=== PATIENT | female | born 1950 | race Caucasian/White ===

== ENCOUNTER → 2016-08-26 | Outpatient (CLI) | payer MEDICAID ==
[2012-10-01 19:29] VITALS: BP 146/94
[2016-08-26 09:40] LABS: BASOPHILS # (AUTO) 0.1 X10^3/uL (0.0-0.1); BASOPHILS % (AUTO) 0.5 % (0.2-1.0); EOSINOPHILS # (AUTO) 0.1 x10^3/uL (0.0-0.2); HEMATOCRIT 42.7 % (36.0-47.0); HEMOGLOBIN 14.4 g/dL (12.0-16.0); LYMPHOCYTES # (AUTO) 2.5 X10^3/uL (1.3-2.9); LYMPHOCYTES % (AUTO) 19.8 % (21.0-51.0); MEAN CORPUSCULAR HEMOGLOBIN 30.9 pg (27.0-34.0); MEAN CORPUSCULAR HGB CONC 33.8 g/dL (33.0-35.0); MEAN CORPUSCULAR VOLUME 91.4 fL (80.0-100.0); MEAN PLATELET VOLUME 8.6 fL (7.4-11.0); MONOCYTES # (AUTO) 0.7 x10^3/uL (0.3-0.8); MONOCYTES % (AUTO) 5.5 % (0.0-13.0); NEUTROPHILS # (AUTO) 9.3 x10^3/uL (2.2-4.8); NEUTROPHILS % (AUTO) 73.2 % (42.0-75.0); PLATELET COUNT 187 X10^3/uL (150.0-450.0); RED BLOOD COUNT 4.67 X10^6/uL (3.5-5.4); RED CELL DISTRIBUTION WIDTH 13.2 % (11.6-16.5); WHITE BLOOD COUNT 12.7 X10^3/uL (3.6-10.0)
[2016-08-26 10:02] LABS: ALANINE AMINOTRANSFERASE 27 Units/L (12-78); ALBUMIN 3.3 g/dL (3.4-5.0); ALKALINE PHOSPHATASE 91 Units/L (46-116); ASPARTATE AMINO TRANSFERASE 18 Units/L (15-37); BLOOD UREA NITROGEN 26 mg/dL (7-18); CALCIUM 8.9 mg/dL (8.5-10.1); CARBON DIOXIDE 26.1 mmol/L (21-32); CHLORIDE 105 mmol/L (98-107); CHOL/HDL RATIO 4.4 (0.0-5.0); CHOLESTEROL 162 mg/dL (0-200); COR CA(FOR HYPOALB) 9.5 mg/dL (8.5-10.1); GLUCOSE 96 mg/dL (65-99); HDL CHOLESTEROL 37 mg/dL (40-60); SODIUM 130 mmol/L (136-145); T4 (THYROXINE) 8.4 ug/dL (4.7-13.3); TOTAL PROTEIN 7.7 g/dL (6.4-8.2); TRIGLYCERIDES 99 mg/dL (0-150); TSH (3RD GENERATION) 3.533 uIU/mL (0.358-3.74); eGFR BLACK RACES 45 (>60); eGFR NON BLACK RACES 37 (>60)
== END ==
LOC: LAB 07:59
PROVIDERS: ATTEND Nurse Practitioner Family
DX: R25.2 Cramp and spasm (principal); E78.4 Other hyperlipidemia; N95.0 Postmenopausal bleeding
CPT/HCPCS: 36415; 80053; 80061; 82671; 83001; 83002; 83970; 84436; 84443; 85025

== ENCOUNTER → 2016-09-08 | Outpatient (CLI) | payer MEDICAID ==
[2012-10-01 19:29] VITALS: BP 146/94
--- NOTE | 2016-09-08 17:13 | US ---
History: Postmenopausal bleeding. Exam: Pelvic ultrasound Comparison: None. Technique: Multiple grayscale and color flow Doppler images of the pelvis were obtained. Findings: The uterus 4.0 x 2.4 x 4.0 cm. No evidence for myometrial masses or calcifications can be observed. The endometrial stripe is normal in size measuring 2 mm. The right and left adnexa are unremarkab le. The ovaries are not well seen. No adnexal mass or free fluid can be identified. IMPRESSION: 1. Unremarkable evaluation of the pelvis. 2. The ovaries were not well seen. Reported By:
== END ==
LOC: RAD 09:37
PROVIDERS: ATTEND Psychiatry & Neurology Neurology
DX: N95.0 Postmenopausal bleeding (principal)
CPT/HCPCS: 76830; 76856

== ENCOUNTER → 2016-09-16 | Outpatient (CLI) | payer MEDICAID ==
[2012-10-01 19:29] VITALS: BP 146/94
[2016-09-16 09:49] LABS: T4 (THYROXINE) 7.4 ug/dL (4.7-13.3); TSH (3RD GENERATION) 2.701 uIU/mL (0.358-3.74)
--- NOTE | 2016-09-16 18:32 | US ---
Indication: Neck swelling . Exam: Thyroid ultrasound . Technique: Transverse and longitudinal grayscale and color Doppler images were obtained of the thyro id gland . Comparison: None. Findings: The right lobe measures 3.5 x 1.4 x 1 cm . The left lobe measures 2.2 x 1.2 x 1.2 cm. Both lobes are heterogeneous in echogenicity throughout. The isthmus measures 3 mm. There is no cystic o r solid lesion seen . Impression . Normal sized thyroid gland with moderate heterogeneity throughout both lobes otherwise , unremarkable with no cystic or solid lesion . Reported By:
--- NOTE | 2016-09-17 10:44 | US ---
HISTORY: Abnormal renal function tests, abdominal tenderness Study: Abdominal ultrasound, complete Comparison: None Findings: The liver is normal in size and configuration and without cysts, mass, or biliary ductal dilatation. The patient is status post cholecystectomy. The common bile duct measured 3 millimeters. The spleen was not visualized. The pancreas was obscured by overlying bowel gas. The abdominal aorta was withi n normal limits. The right kidney measures 6.2 x 3.7 x 4.4 centimeters. Left kidney measures 7.7 x 3 .9 x 4.4 centimeters. Cortical thickness and cortical echogenicity were normal bilaterally. No solid masses, hydronephrosis, stones, or perinephric fluid collections were identified. IMPRESSION: Small but otherwise architecturally normal right kidney No other significant findings Reported By:
== END ==
LOC: RAD 08:42
PROVIDERS: ATTEND Nurse Practitioner Family
DX: R25.2 Cramp and spasm (principal); R94.4 Abnormal results of kidney function studies
CPT/HCPCS: 36415; 76536; 76700; 82306; 82310; 82330; 83970; 84436; 84443; 84445; 84481

== ENCOUNTER → 2017-01-05 | Outpatient (CLI) | payer MEDICAID ==
[2012-10-01 19:29] VITALS: BP 146/94
--- NOTE | 2017-01-09 10:04 | MRI ---
MRI OF THE CERVICAL SPINE WITHOUT IV CONTRAST CLINICAL INDICATION: Cervical spondylosis without myelopathy TECHNIQUE: Pre-contrast sagittal T1-, T2-, and T2-w fat-saturated images, and axial T1- and T2-w imag es of the cervical spine. COMPARISON: 07/15/2009 FINDINGS: The cervical spine demonstrates normal alignment. Vertebral bodies are normal in height. There is a n ormal marrow signal pattern. Degenerative disc disease can be appreciated most severely at C4-C5 and C5-C6. Is patient is status post ACDF C4 through C6. There is no abnormality of the cranio-cervical j unction. The included paraspinal soft tissues are grossly normal. Evaluation of the individual levels demonstrates: C1-2: Normal C2-3: Normal C3-4: Facet arthropathy resulting in mild neural foraminal stenosis bilaterally. C4-5: Disc osteophyte complex without significant central stenosis or neural foraminal stenosis. C5-6: Large disc osteophyte complex resulting in severe central stenosis and severe right neural fora philip stenosis. This, combined with severe facet arthropathy results and contouring of the cervical c ord without internal signal abnormality. This is best appreciated on sagittal series 401, image 9 and has worsened since 2010. C6-7: Mild disc osteophyte complex without significant central stenosis. C7-T1: Normal IMPRESSION: 1. Severe disc and facet disease primarily at C5-C6 with severe central stenosis and severe right davina ral foraminal stenosis. Contouring of the cord is present without internal cord signal. Reported By:
== END | disposition home or self-care (01) ==
LOC: RAD 10:00
PROVIDERS: ATTEND Nurse Practitioner Family
DX: M47.812 Spondylosis without myelopathy or radiculopathy, cervical region (principal); M48.02 Spinal stenosis, cervical region
CPT/HCPCS: 72141

== ENCOUNTER → 2017-02-09 | Outpatient (CLI) | payer MEDICAID ==
[2012-10-01 19:29] VITALS: BP 146/94
== END ==
LOC: LAB 07:15
PROVIDERS: ATTEND Nurse Practitioner Family
DX: E78.4 Other hyperlipidemia (principal)
CPT/HCPCS: 36415; 80061